=== PATIENT | male | born 1965 | race Caucasian/White ===

== ENCOUNTER 2024-04-10 18:04 | Emergency (ER) | payer BC, OTHER ==
[~2024-04-10] VITALS: Ht 170.2 cm; Wt 81.1 kg
[2024-04-10 20:17] LABS: HEMATOCRIT 42.5 % (35.0-50.0); HEMOGLOBIN 14.2 g/dL (12.0-18.0); LYMPHOCYTES 40.5 % (24-44); MCH 31.6 (27-36); MCHC 33.5 g/dl (30-36); MCV 94.6 fl (81-99); MONOCYTES 7.5 % (0-12); PLATELET COUNT 215 K/uL (140-440); RDW 14.5 (10.5-15.0)
[2024-04-10 20:33] LABS: ALBUMIN 3.9 g/dL (3.4-5.0); ALBUMIN/GLOBULIN RATIO 1.08 (1.1-2.4); ANION GAP 14.9 (7-21); BILIRUBIN, TOTAL 0.3 ng/dL (0.2-1.0); BUN/CREATININE RATIO 15.15 (6.0-28.6); CALCIUM 8.7 mg/dL (8.5-10.1); CREATININE, SERUM 0.99 mg/dL (0.70-1.30); POTASSIUM 3.9 mmol/L (3.5-5.1); PROTEIN, TOTAL 7.5 g/dL (6.4-8.2)
[2024-04-10 23:22] VITALS: BP 135/89
[2024-04-10 23:22] LABS: BILIRUBIN, URINE NEGATIVE (negative); BLOOD/HGB, URINE NEGATIVE (Negative); KETONE, URINE NEGATIVE (Negative); LEUK ESTERASE, URINE NEGATIVE (negative); NITRITE, URINE NEGATIVE (negative); PH, URINE 5.5 (5-7)
[2024-04-10 23:30] LABS: AMPHETAMINES, URINE NEGATIVE (NEGATIVE); BARBITURATES, URINE NEGATIVE (NEGATIVE); BENZODIAZEPINE, URINE NEGATIVE (NEGATIVE); BUPRENORPHINE, URINE NEGATIVE (NEGATIVE); CANNABINOID, URINE NEGATIVE (NEGATIVE); COCAINE, URINE NEGATIVE (NEGATIVE); ECSTASY, URINE NEGATIVE (NEGATIVE); FENTANYL, URINE NEGATIVE (NEGATIVE); METHADONE, URINE NEGATIVE (NEGATIVE); OPIATES, URINE NEGATIVE (NEGATIVE); OXYCODONE, URINE NEGATIVE (NEGATIVE); PHENCYCLIDINE, URINE NEGATIVE (NEGATIVE)
== END 2024-04-10 23:22 | disposition home or self-care (01) ==
LOC: ED 18:04
PROVIDERS: Internal Medicine
DX: N43.3 Hydrocele, unspecified (principal)
CPT/HCPCS: 36415; 74177; 76870; 80053; 80307; 81003; 85025; 99284-25; Q9967